=== PATIENT | female | born 1980 | race Caucasian/White ===

== ENCOUNTER 2016-12-30 20:50 | Inpatient (IN) | payer MEDICAID ==
[~2016-12-30] VITALS: Ht 154.9 cm; Wt 73.9 kg
[~2016-12-30 20:50] MED LIST: BENZ2TAB10 PO; DIVA500T52 PO; DOCU250C91 PO; HALO10 PO; LAMO25TA66 PO; LORA10TA7 PO; LORA2TAB2 PO
[2016-12-30 22:53] LABS: BASOPHILS % (AUTO) 0.3 % (0.0-2.0); EOSINOPHILS % (AUTO) 0.1 % (1.0-6.0); HEMATOCRIT 42.5 % (36-46); HEMOGLOBIN 14.5 g/dL (12.0-16.0); LYMPHOCYTES # (AUTO) 1.7 K/uL (1.0-4.8); LYMPHOCYTES % (AUTO) 16.2 % (22.0-44.0); MEAN CORPUSCULAR HEMOGLOBIN 30.5 pg (26.0-34.0); MEAN CORPUSCULAR HGB CONC 34.2 G/dL (31.0-37.0); MEAN CORPUSCULAR VOLUME 89 fL (80-100); MONOCYTES # (AUTO) 0.6 K/uL (0.1-1.0); MONOCYTES % (AUTO) 5.5 % (2.0-9.0); NEUTROPHILS # (AUTO) 8.1 K/uL (1.8-7.7); NEUTROPHILS % (AUTO) 77.9 % (40.0-70.0); PLATELET COUNT (AUTO) 412 K/uL (150-450); RED BLOOD CELL COUNT(AUTO) 4.76 MIL/uL (4.00-5.20); RED CELL DISTRIBUTION WIDTH 15.9 % (11.5-14.5); WHITE BLOOD COUNT (AUTO) 10.5 K/uL (4.5-11.0)
[2016-12-30 23:04] LABS: ANION GAP 13 mmol/L (8-16); CALCIUM, TOTAL 9.3 mg/dL (8.8-10.5); CARBON DIOXIDE 25 mmol/L (22-29); CHLORIDE 101 mmol/L (98-107); CREATININE 0.95 mg/dL (0.60-1.30); GLOMERULAR FILTR. RATE CALC > 60 mL/min (>60); POTASSIUM 3.1 mmol/L (3.5-5.1); SODIUM SERUM 139 mmol/L (136-145); UREA NITROGEN, BLOOD 10 mg/dL (7-18)
[2016-12-30 23:11] LABS: ALANINE AMINOTRANSFERASE 23 U/L (12-78); ALBUMIN 3.7 g/dL (3.4-5.0); ASPARTATE AMINOTRANSFERASE 13 U/L (15-37); BILIRUBIN,TOTAL 0.7 mg/dL (0.1-1.0)
[2016-12-30 23:29] LABS: VALPROIC ACID < 3 mcg/mL (50-100)
[2016-12-31] MEDS ORDERED: POTASSIUM CHLORIDE 10% 40 MEQ/30 ML LIQUID UDCUP PO ONE (04:30)
[2016-12-31 06:57] VITALS: BP 134/89
[2016-12-31] MEDS: LORazepam 2 MG TABLET PO PRN (07:04)
[2016-12-31 08:11] LABS: BASOPHILS % (AUTO) 0.5 % (0.0-2.0); HEMATOCRIT 40.4 % (36-46); LYMPHOCYTES % (AUTO) 31.9 % (22.0-44.0); MEAN CORPUSCULAR HEMOGLOBIN 33.3 pg (26.0-34.0); MEAN CORPUSCULAR HGB CONC 34.6 G/dL (31.0-37.0); MEAN CORPUSCULAR VOLUME 96 fL (80-100); MONOCYTES # (AUTO) 0.6 K/uL (0.1-1.0); MONOCYTES % (AUTO) 8.7 % (2.0-9.0); NEUTROPHILS # (AUTO) 3.6 K/uL (1.8-7.7); NEUTROPHILS % (AUTO) 57.9 % (40.0-70.0); PLATELET COUNT (AUTO) 304 K/uL (150-450); RED CELL DISTRIBUTION WIDTH 13.7 % (11.5-14.5); WHITE BLOOD COUNT (AUTO) 6.3 K/uL (4.5-11.0)
[2016-12-31 08:53] LABS: HEMOGLOBIN A1C 5.3 % (4.5-6.2)
[2016-12-31 09:19] LABS: ALANINE AMINOTRANSFERASE 30 U/L (12-78); ALBUMIN 3.7 g/dL (3.4-5.0); ANION GAP 11 mmol/L (8-16); ASPARTATE AMINOTRANSFERASE 41 U/L (15-37); BILIRUBIN,TOTAL 0.7 mg/dL (0.1-1.0); CALCIUM, TOTAL 9.1 mg/dL (8.8-10.5); CARBON DIOXIDE 25 mmol/L (22-29); CHLORIDE 102 mmol/L (98-107); CHOL/HDL RATIO 2.6 (3.9-5.7); GLOMERULAR FILTR. RATE CALC > 60 mL/min (>60); POTASSIUM 3.5 mmol/L (3.5-5.1); SODIUM SERUM 138 mmol/L (136-145); TOTAL PROTEIN, SERUM 7.4 g/dL (6.4-8.2); UREA NITROGEN, BLOOD 9 mg/dL (7-18)
[2017-01-01 02:58] VITALS: BP 135/68
[2017-01-01] MEDS ORDERED: LORazepam 2 MG/ML VIAL ONE (03:43)
[2017-01-01] MEDS ORDERED: HALOPERIDOL LACTATE 5 MG/ML VIAL ONE (03:44)
[2017-01-01] MEDS ORDERED: DiphenhydrAMINE HCL 50 MG/ML VIAL ONE (03:44)
[2017-01-01] MEDS ORDERED: LORazepam 2 MG/ML VIAL IM ONE (03:45)
[2017-01-01] MEDS ORDERED: DiphenhydrAMINE HCL 50 MG/ML VIAL IM ONE (03:45)
[2017-01-01] MEDS ORDERED: HALOPERIDOL LACTATE 5 MG/ML VIAL IM ONE (03:45)
[2017-01-01] MEDS: NICOTINE 21 MG/24 HOUR PATCH TD SCH (09:50)
[2017-01-01] MEDS ORDERED: LAMO100 PO (12:11)
[2017-01-01] MEDS: ALBUTEROL SULFATE HFA 90 MCG/PUFF 8 GM INHALER IH PRN (14:55)
[2017-01-01 16:23] VITALS: BP 122/74
[2017-01-01] MEDS ORDERED: MAGNESIUM HYDROXIDE SUSPENSION 30 ML UDCUP PO PRN (17:00)
[2017-01-01] MEDS: DOCUSATE SODIUM 100 MG CAPSULE PO SCH (17:22)
[2017-01-01] MEDS: LamoTRIgine 100 MG TABLET PO SCH (20:04)
[2017-01-01] MEDS: HALOPERIDOL 5 MG TABLET PO SCH (20:04)
[2017-01-01] MEDS: ZOLPIDEM TARTRATE 10 MG TABLET PO PRN (21:07)
[2017-01-01] MEDS: LORazepam 2 MG TABLET PO PRN (21:28)
[2017-01-02 02:53] VITALS: BP 122/92
[2017-01-02] MEDS: ALBUTEROL SULFATE HFA 90 MCG/PUFF 8 GM INHALER IH PRN ×4 (02:55→20:04)
[2017-01-02] MEDS: NICOTINE 21 MG/24 HOUR PATCH TD SCH (08:45)
[2017-01-02] MEDS: DIVALPROEX SODIUM 500 MG DR TABLET PO SCH ×2 (08:45→16:40)
[2017-01-02] MEDS: DOCUSATE SODIUM 100 MG CAPSULE PO SCH ×2 (08:45→16:40)
[2017-01-02 10:06] VITALS: BP 107/55
[2017-01-02] MEDS: LORazepam 2 MG TABLET PO PRN (11:55)
[2017-01-02] MEDS: BENZTROPINE MESYLATE 1 MG TABLET PO SCH ×2 (12:22→16:40)
[2017-01-02 16:35] VITALS: BP 119/75
[2017-01-02] MEDS: LamoTRIgine 100 MG TABLET PO SCH (20:04)
[2017-01-02] MEDS: HALOPERIDOL 5 MG TABLET PO SCH (20:04)
[2017-01-02] MEDS: ZOLPIDEM TARTRATE 10 MG TABLET PO PRN (22:06)
[2017-01-03] MEDS: ALBUTEROL SULFATE HFA 90 MCG/PUFF 8 GM INHALER IH PRN ×4 (00:22→23:43)
[2017-01-03] MEDS ORDERED: GuaiFENesin/D-METHORPHAN [SUGAR-FREE] 200-20MG/10 ML SYRUP UDCUP PO PRN (02:45)
[2017-01-03] MEDS ORDERED: GuaiFENesin/D-METHORPHAN [SUGAR-FREE] 200-20MG/10 ML SYRUP UDCUP PO SCH (04:00)
[2017-01-03] MEDS: GuaiFENesin/D-METHORPHAN [SUGAR-FREE] 200-20MG/10 ML SYRUP UDCUP PO PRN ×3 (05:20→20:45)
[2017-01-03 06:35] VITALS: BP 130/77
[2017-01-03 08:28] VITALS: BP 119/68
[2017-01-03] MEDS: DIVALPROEX SODIUM 500 MG DR TABLET PO SCH ×2 (09:18→16:21)
[2017-01-03] MEDS: NICOTINE 21 MG/24 HOUR PATCH TD SCH (09:18)
[2017-01-03] MEDS: DOCUSATE SODIUM 100 MG CAPSULE PO SCH ×2 (09:19→16:21)
[2017-01-03] MEDS: HALOPERIDOL 5 MG TABLET PO PRN (09:20)
[2017-01-03] MEDS: BENZTROPINE MESYLATE 1 MG TABLET PO SCH ×2 (12:19→16:21)
[2017-01-03] MEDS: LORazepam 2 MG TABLET PO PRN (13:37)
[2017-01-03 16:31] VITALS: BP 127/77
[2017-01-03] MEDS: HALOPERIDOL 5 MG TABLET PO SCH (20:19)
[2017-01-03] MEDS: ZOLPIDEM TARTRATE 10 MG TABLET PO PRN (20:19)
[2017-01-03] MEDS: LamoTRIgine 100 MG TABLET PO SCH (20:19)
[2017-01-04 00:20] VITALS: BP 132/78
[2017-01-04] MEDS: GuaiFENesin/D-METHORPHAN [SUGAR-FREE] 200-20MG/10 ML SYRUP UDCUP PO PRN (01:08)
[2017-01-04] MEDS: LORazepam 2 MG TABLET PO PRN ×3 (01:08→20:01)
[2017-01-04 08:13] VITALS: BP 101/68
[2017-01-04] MEDS: DOCUSATE SODIUM 100 MG CAPSULE PO SCH ×2 (09:31→16:24)
[2017-01-04] MEDS: BENZTROPINE MESYLATE 1 MG TABLET PO SCH ×2 (09:31→16:24)
[2017-01-04] MEDS: NICOTINE 21 MG/24 HOUR PATCH TD SCH (09:31)
[2017-01-04] MEDS: DIVALPROEX SODIUM 500 MG DR TABLET PO SCH ×2 (09:32→16:24)
[2017-01-04] MEDS: HALOPERIDOL 5 MG TABLET PO PRN (09:32)
[2017-01-04] MEDS: ALBUTEROL SULFATE HFA 90 MCG/PUFF 8 GM INHALER IH PRN ×3 (10:43→20:51)
[2017-01-04 16:30] VITALS: BP 125/82
[2017-01-04] MEDS: LamoTRIgine 100 MG TABLET PO SCH (20:01)
[2017-01-04] MEDS: HALOPERIDOL 5 MG TABLET PO SCH (20:01)
[2017-01-04] MEDS: ZOLPIDEM TARTRATE 10 MG TABLET PO PRN (20:51)
[2017-01-05 02:18] VITALS: BP 113/73
[2017-01-05] MEDS: ALBUTEROL SULFATE HFA 90 MCG/PUFF 8 GM INHALER IH PRN ×2 (02:20→06:29)
[2017-01-05 08:43] VITALS: BP 109/60
[2017-01-05] MEDS: DIVALPROEX SODIUM 500 MG DR TABLET PO SCH ×2 (09:26→16:04)
[2017-01-05] MEDS: BENZTROPINE MESYLATE 1 MG TABLET PO SCH ×2 (09:26→16:04)
[2017-01-05] MEDS: NICOTINE 21 MG/24 HOUR PATCH TD SCH (09:26)
[2017-01-05] MEDS: DOCUSATE SODIUM 100 MG CAPSULE PO SCH ×2 (09:26→16:04)
[2017-01-05] MEDS: LORazepam 2 MG TABLET PO PRN ×3 (09:27→20:17)
[2017-01-05] MEDS: HALOPERIDOL 5 MG TABLET PO PRN (12:56)
[2017-01-05] MEDS: GuaiFENesin/D-METHORPHAN [SUGAR-FREE] 200-20MG/10 ML SYRUP UDCUP PO PRN (16:27)
[2017-01-05 17:47] VITALS: BP 123/76
[2017-01-05] MEDS: LamoTRIgine 100 MG TABLET PO SCH (20:18)
[2017-01-05] MEDS: HALOPERIDOL 5 MG TABLET PO SCH (20:18)
[2017-01-05] MEDS: ZOLPIDEM TARTRATE 10 MG TABLET PO PRN (20:47)
[2017-01-06] MEDS: ALBUTEROL SULFATE HFA 90 MCG/PUFF 8 GM INHALER IH PRN ×2 (01:33→05:57)
[2017-01-06] MEDS: LORazepam 2 MG TABLET PO PRN ×2 (01:33→16:33)
[2017-01-06] MEDS: HALOPERIDOL 5 MG TABLET PO PRN ×3 (01:33→16:34)
[2017-01-06 01:34] VITALS: BP 112/70
[2017-01-06] MEDS: BENZTROPINE MESYLATE 1 MG TABLET PO SCH ×2 (08:31→16:33)
[2017-01-06] MEDS: DOCUSATE SODIUM 100 MG CAPSULE PO SCH ×2 (08:32→16:33)
[2017-01-06] MEDS: NICOTINE 21 MG/24 HOUR PATCH TD SCH (08:32)
[2017-01-06] MEDS: DIVALPROEX SODIUM 500 MG DR TABLET PO SCH ×2 (08:32→16:34)
[2017-01-06 08:53] VITALS: BP 125/64
[2017-01-06] MEDS ORDERED: BENZOCAINE/MENTHOL LOZENGE PO PRN (10:30)
[2017-01-06] MEDS: GuaiFENesin/D-METHORPHAN [SUGAR-FREE] 200-20MG/10 ML SYRUP UDCUP PO PRN (10:49)
[2017-01-06] MEDS ORDERED: ACETAMINOPHEN 325 MG TABLET PO PRN (11:00)
[2017-01-06] MEDS ORDERED: IBUPROFEN 600 MG TABLET PO PRN (11:00)
[2017-01-06 16:16] VITALS: BP 103/61
[2017-01-06] MEDS: LamoTRIgine 100 MG TABLET PO SCH (21:17)
[2017-01-06] MEDS: HALOPERIDOL 5 MG TABLET PO SCH (21:17)
[2017-01-06] MEDS: ZOLPIDEM TARTRATE 10 MG TABLET PO PRN (21:18)
[2017-01-07 06:29] VITALS: BP 120/60
[2017-01-07 08:00] VITALS: BP 115/72
[2017-01-07] MEDS: BENZTROPINE MESYLATE 1 MG TABLET PO SCH (08:37)
[2017-01-07] MEDS: DOCUSATE SODIUM 100 MG CAPSULE PO SCH (08:37)
[2017-01-07] MEDS: DIVALPROEX SODIUM 500 MG DR TABLET PO SCH (08:38)
[2017-01-07] MEDS: NICOTINE 21 MG/24 HOUR PATCH TD SCH (08:45)
[2017-01-07] MEDS ORDERED: HALO5 PO (09:33)
[2017-01-07] MEDS ORDERED: BENZ1TAB10 PO (09:33)
[2017-01-07] MEDS ORDERED: DSS100 PO (09:33)
== END 2017-01-07 13:15 | disposition home or self-care (01) | DRG 750 ==
LOC: EMS 22:33 → B3A 23:00
PROVIDERS: ADMIT Psychiatry & Neurology Psychiatry; ATTEND Psychiatry & Neurology Psychiatry
DX: F25.9 Schizoaffective disorder, unspecified (principal); Z91.14 Patient's other noncompliance with medication regimen; E87.6 Hypokalemia; F14.90 Cocaine use, unspecified, uncomplicated; F17.200 Nicotine dependence, unspecified, uncomplicated; F19.10 Other psychoactive substance abuse, uncomplicated; F31.9 Bipolar disorder, unspecified; Z02.9 Encounter for administrative examinations, unspecified; Z82.49 Family history of ischemic heart disease and other diseases of the circulatory system; Z83.3 Family history of diabetes mellitus; Z79.899 Other long term (current) drug therapy; Z88.2 Allergy status to sulfonamides
CPT/HCPCS: 83036; 84439; 84443; 87081; 99285; G0480; J1200; J1630; J2060; J3535

== ENCOUNTER 2017-01-27 02:04 | Emergency (ER) | payer MEDICAID, OTHER ==
[~2017-01-27] VITALS: Ht 157.5 cm; Wt 72.5 kg
[~2017-01-27 02:04] MED LIST changes: +BENZ1TAB10 PO; -BENZ2TAB10 PO; -DOCU250C91 PO; +DSS100 PO; -HALO10 PO; +HALO5 PO; +LAMO100 PO; -LAMO25TA66 PO; -LORA10TA7 PO; -LORA2TAB2 PO
[2017-01-27] MEDS ORDERED: OLAN5TAB2 PO (02:22)
[2017-01-27] MEDS ORDERED: HALO50VI4 IM (02:22)
[2017-01-27 02:32] LABS: BASOPHILS % (AUTO) 0.5 % (0.0-2.0); EOSINOPHILS % (AUTO) 0 % (1.0-6.0); HEMATOCRIT 45.5 % (36-46); HEMOGLOBIN 15.4 g/dL (12.0-16.0); LYMPHOCYTES # (AUTO) 2.5 K/uL (1.0-4.8); LYMPHOCYTES % (AUTO) 16.5 % (22.0-44.0); MEAN CORPUSCULAR HEMOGLOBIN 30.7 pg (26.0-34.0); MEAN CORPUSCULAR HGB CONC 33.9 G/dL (31.0-37.0); MEAN CORPUSCULAR VOLUME 91 fL (80-100); MONOCYTES # (AUTO) 1.1 K/uL (0.1-1.0); MONOCYTES % (AUTO) 7.1 % (2.0-9.0); NEUTROPHILS # (AUTO) 11.4 K/uL (1.8-7.7); NEUTROPHILS % (AUTO) 75.9 % (40.0-70.0); PLATELET COUNT (AUTO) 411 K/uL (150-450); RED BLOOD CELL COUNT(AUTO) 5.02 MIL/uL (4.00-5.20); RED CELL DISTRIBUTION WIDTH 15.5 % (11.5-14.5)
[2017-01-27] MEDS ORDERED: OLANZapine 5 MG TABLET PO ONE (03:00)
[2017-01-27] MEDS ORDERED: LORazepam 2 MG TABLET PO ONE (03:00)
[2017-01-27 03:03] LABS: ANION GAP 11 mmol/L (8-16); CALCIUM, TOTAL 9.1 mg/dL (8.8-10.5); CARBON DIOXIDE 25 mmol/L (22-29); CHLORIDE 102 mmol/L (98-107); CREATININE 1.11 mg/dL (0.60-1.30); GLOMERULAR FILTR. RATE CALC 56 mL/min (>60); POTASSIUM 4.1 mmol/L (3.5-5.1); SODIUM SERUM 138 mmol/L (136-145); UREA NITROGEN, BLOOD 12 mg/dL (7-18)
[2017-01-27 03:09] LABS: ALANINE AMINOTRANSFERASE 13 U/L (12-78); ALBUMIN 4.4 g/dL (3.4-5.0); ASPARTATE AMINOTRANSFERASE 16 U/L (15-37); BILIRUBIN,TOTAL 0.4 mg/dL (0.1-1.0); TOTAL PROTEIN, SERUM 8.7 g/dL (6.4-8.2)
[2017-01-27 03:15] LABS: VALPROIC ACID < 3 mcg/mL (50-100)
[2017-01-27 04:04] VITALS: BP 111/66
== END 2017-01-27 04:35 | disposition home or self-care (01) ==
LOC: EMS 02:05
DX: F31.9 Bipolar disorder, unspecified (principal); F91.9 Conduct disorder, unspecified; Z88.2 Allergy status to sulfonamides
CPT/HCPCS: 36415; 80053; 80164; 80307; 84703; 85025; 99284; G0480

== ENCOUNTER 2017-03-14 02:39 | Inpatient (IN) | payer MEDICAID, SELFPAY ==
[~2017-03-14] VITALS: Ht 154.9 cm; Wt 77.7 kg
[~2017-03-14 02:39] MED LIST changes: -DSS100 PO; -HALO5 PO; +HALO50VI4 IM; +OLAN5TAB2 PO
[2017-03-14] MEDS ORDERED: QUET200XR PO (02:50)
[2017-03-14 03:23] LABS: BASOPHILS % (AUTO) 0.9 % (0.0-2.0); EOSINOPHILS % (AUTO) 0.1 % (1.0-6.0); HEMATOCRIT 40.7 % (36-46); HEMOGLOBIN 13.8 g/dL (12.0-16.0); LYMPHOCYTES % (AUTO) 15.4 % (22.0-44.0); MEAN CORPUSCULAR HEMOGLOBIN 30.5 pg (26.0-34.0); MEAN CORPUSCULAR HGB CONC 33.9 G/dL (31.0-37.0); MEAN CORPUSCULAR VOLUME 90 fL (80-100); MONOCYTES # (AUTO) 0.5 K/uL (0.1-1.0); MONOCYTES % (AUTO) 4.3 % (2.0-9.0); NEUTROPHILS # (AUTO) 10.2 K/uL (1.8-7.7); NEUTROPHILS % (AUTO) 79.3 % (40.0-70.0); PLATELET COUNT (AUTO) 362 K/uL (150-450); RED BLOOD CELL COUNT(AUTO) 4.52 MIL/uL (4.00-5.20); RED CELL DISTRIBUTION WIDTH 15.4 % (11.5-14.5); WHITE BLOOD COUNT (AUTO) 12.8 K/uL (4.5-11.0)
[2017-03-14 03:29] LABS: ANION GAP 12 mmol/L (8-16); CALCIUM, TOTAL 8.6 mg/dL (8.8-10.5); CARBON DIOXIDE 23 mmol/L (22-29); CHLORIDE 102 mmol/L (98-107); CREATININE 0.84 mg/dL (0.60-1.30); GLOMERULAR FILTR. RATE CALC > 60 mL/min (>60); POTASSIUM 3.5 mmol/L (3.5-5.1); SODIUM SERUM 137 mmol/L (136-145); UREA NITROGEN, BLOOD 9 mg/dL (7-18)
[2017-03-14] MEDS ORDERED: HALOPERIDOL LACTATE 5 MG/ML VIAL IM ONE (03:30)
[2017-03-14] MEDS ORDERED: DiphenhydrAMINE HCL 50 MG/ML VIAL IM ONE (03:30)
[2017-03-14] MEDS ORDERED: LORazepam 2 MG/ML VIAL IM ONE (03:30)
[2017-03-14 03:34] LABS: ALANINE AMINOTRANSFERASE 17 U/L (12-78); ALBUMIN 3.8 g/dL (3.4-5.0); ASPARTATE AMINOTRANSFERASE 13 U/L (15-37); BILIRUBIN,TOTAL 0.2 mg/dL (0.1-1.0); TOTAL PROTEIN, SERUM 7.7 g/dL (6.4-8.2)
[2017-03-14] MEDS ORDERED: HALOPERIDOL 5 MG TABLET PO PRN (03:45)
[2017-03-14 06:08] VITALS: BP 108/62
[2017-03-14] MEDS ORDERED: INFLUENZA VIRUS VACCINE QVS 2017-18 (3YR+)/PF 60 MCG/0.5 ML SYRINGE IM ONE (06:30)
[2017-03-14] MEDS: QUEtiapine FUMARATE 200 MG ER TABLET PO SCH (09:30)
[2017-03-14] MEDS: OLANZapine 5 MG TABLET PO SCH (09:30)
[2017-03-14 16:30] VITALS: BP 107/64
[2017-03-14] MEDS: LamoTRIgine 100 MG TABLET PO SCH (20:26)
[2017-03-15] MEDS: QUEtiapine FUMARATE 200 MG ER TABLET PO SCH (09:24)
[2017-03-15] MEDS: OLANZapine 5 MG TABLET PO SCH (09:25)
[2017-03-15] MEDS: NICOTINE 21 MG/24 HOUR PATCH TD SCH (11:09)
[2017-03-15] MEDS: LORazepam 2 MG TABLET PO PRN (15:57)
[2017-03-15] MEDS: LamoTRIgine 100 MG TABLET PO SCH (20:30)
[2017-03-15 22:21] VITALS: BP 116/72
[2017-03-16 01:50] VITALS: BP 109/90
[2017-03-16] MEDS: LORazepam 2 MG TABLET PO PRN ×2 (01:52→10:59)
[2017-03-16 08:35] VITALS: BP 106/56
[2017-03-16] MEDS: QUEtiapine FUMARATE 200 MG ER TABLET PO SCH (10:35)
[2017-03-16] MEDS: OLANZapine 5 MG TABLET PO SCH (10:36)
[2017-03-16] MEDS: NICOTINE 21 MG/24 HOUR PATCH TD SCH (10:37)
[2017-03-16] MEDS ORDERED: HEPATITIS A VACCINE, INACTI [ADULT] 1,440 UNITS/ML VIAL IM ONE (11:45)
[2017-03-16 16:30] VITALS: BP 107/67
[2017-03-16] MEDS: LamoTRIgine 100 MG TABLET PO SCH (20:29)
[2017-03-16] MEDS: ZOLPIDEM TARTRATE 10 MG TABLET PO PRN (22:54)
[2017-03-17 08:00] VITALS: BP 114/71
[2017-03-17] MEDS: NICOTINE 21 MG/24 HOUR PATCH TD SCH (10:34)
[2017-03-17] MEDS: QUEtiapine FUMARATE 200 MG ER TABLET PO SCH (10:34)
[2017-03-17] MEDS: OLANZapine 5 MG TABLET PO SCH (10:34)
[2017-03-17] MEDS ORDERED: ACETAMINOPHEN 325 MG TABLET PO PRN (10:45)
[2017-03-17] MEDS ORDERED: IBUPROFEN 600 MG TABLET PO PRN (10:45)
[2017-03-17 16:39] VITALS: BP 125/69
[2017-03-17] MEDS ORDERED: BISACODYL 5 MG EC TABLET PO PRN (16:45)
[2017-03-17] MEDS ORDERED: MAGNESIUM HYDROXIDE SUSPENSION 30 ML UDCUP PO PRN (16:45)
[2017-03-17] MEDS ORDERED: LACTULOSE 20 GM/30 ML SOLUTION UDCUP PO PRN (16:45)
[2017-03-17] MEDS: DOCUSATE SODIUM 250 MG CAPSULE PO SCH (16:52)
[2017-03-17] MEDS: LamoTRIgine 100 MG TABLET PO SCH (21:49)
[2017-03-17] MEDS: LORazepam 2 MG TABLET PO PRN (22:04)
[2017-03-18] MEDS: DOCUSATE SODIUM 250 MG CAPSULE PO SCH ×2 (08:42→16:33)
[2017-03-18] MEDS: QUEtiapine FUMARATE 200 MG ER TABLET PO SCH (08:42)
[2017-03-18] MEDS: OLANZapine 5 MG TABLET PO SCH (08:43)
[2017-03-18] MEDS: NICOTINE 21 MG/24 HOUR PATCH TD SCH (08:47)
[2017-03-18 08:55] VITALS: BP 105/70
[2017-03-18 16:30] VITALS: BP 103/79
[2017-03-18] MEDS: LamoTRIgine 100 MG TABLET PO SCH (21:20)
[2017-03-18] MEDS: LORazepam 2 MG TABLET PO PRN (22:35)
[2017-03-19 01:56] VITALS: BP 98/71
[2017-03-19] MEDS: OLANZapine 5 MG TABLET PO SCH (11:28)
[2017-03-19] MEDS: QUEtiapine FUMARATE 200 MG ER TABLET PO SCH (11:28)
[2017-03-19] MEDS: DOCUSATE SODIUM 250 MG CAPSULE PO SCH ×2 (11:28→17:27)
[2017-03-19] MEDS: NICOTINE 21 MG/24 HOUR PATCH TD SCH (11:30)
[2017-03-19 13:24] VITALS: BP 125/62
[2017-03-19 16:28] VITALS: BP 114/69
[2017-03-19] MEDS: LORazepam 2 MG TABLET PO PRN (17:39)
[2017-03-19] MEDS: ZOLPIDEM TARTRATE 10 MG TABLET PO PRN (21:34)
[2017-03-19] MEDS: LamoTRIgine 100 MG TABLET PO SCH (21:35)
[2017-03-20 01:50] VITALS: BP 119/71
[2017-03-20] MEDS: LORazepam 2 MG TABLET PO PRN ×2 (05:52→21:08)
[2017-03-20 08:15] VITALS: BP 116/67
[2017-03-20] MEDS: OLANZapine 5 MG TABLET PO SCH (09:55)
[2017-03-20] MEDS: DOCUSATE SODIUM 250 MG CAPSULE PO SCH ×2 (09:55→17:12)
[2017-03-20] MEDS: QUEtiapine FUMARATE 200 MG ER TABLET PO SCH (09:55)
[2017-03-20] MEDS: NICOTINE 21 MG/24 HOUR PATCH TD SCH (09:58)
[2017-03-20] MEDS: ARIPiprazole 5 MG TABLET PO SCH (12:35)
[2017-03-20] MEDS: LamoTRIgine 100 MG TABLET PO SCH (21:08)
[2017-03-21 08:15] VITALS: BP 114/62
[2017-03-21] MEDS: QUEtiapine FUMARATE 200 MG ER TABLET PO SCH (09:38)
[2017-03-21] MEDS: DOCUSATE SODIUM 250 MG CAPSULE PO SCH ×2 (09:38→16:41)
[2017-03-21] MEDS: ARIPiprazole 5 MG TABLET PO SCH (09:38)
[2017-03-21] MEDS: OLANZapine 5 MG TABLET PO SCH (09:39)
[2017-03-21] MEDS: NICOTINE 21 MG/24 HOUR PATCH TD SCH (09:40)
[2017-03-21 16:58] VITALS: BP 119/73
[2017-03-21] MEDS: LamoTRIgine 100 MG TABLET PO SCH (20:12)
[2017-03-22] MEDS: LORazepam 2 MG TABLET PO PRN ×2 (04:07→19:07)
[2017-03-22 04:20] VITALS: BP 129/69
[2017-03-22 08:15] VITALS: BP 119/68
[2017-03-22] MEDS: ARIPiprazole 5 MG TABLET PO SCH (10:56)
[2017-03-22] MEDS: DOCUSATE SODIUM 250 MG CAPSULE PO SCH ×2 (10:57→16:41)
[2017-03-22] MEDS: QUEtiapine FUMARATE 200 MG ER TABLET PO SCH (10:57)
[2017-03-22] MEDS: OLANZapine 5 MG TABLET PO SCH (10:58)
[2017-03-22] MEDS: NICOTINE 21 MG/24 HOUR PATCH TD SCH (11:00)
[2017-03-22] MEDS ORDERED: ARIPiprazole ER SUSPENSION 400 MG VIAL IM SCH (14:00)
[2017-03-22] MEDS: LamoTRIgine 100 MG TABLET PO SCH (20:33)
[2017-03-22] MEDS: ZOLPIDEM TARTRATE 10 MG TABLET PO PRN (21:41)
[2017-03-23 08:57] VITALS: BP 109/59
[2017-03-23] MEDS: ARIPiprazole 5 MG TABLET PO SCH (09:57)
[2017-03-23] MEDS: DOCUSATE SODIUM 250 MG CAPSULE PO SCH ×2 (09:57→16:28)
[2017-03-23] MEDS: OLANZapine 5 MG TABLET PO SCH (09:57)
[2017-03-23] MEDS: QUEtiapine FUMARATE 200 MG ER TABLET PO SCH (09:58)
[2017-03-23] MEDS: NICOTINE 21 MG/24 HOUR PATCH TD SCH (09:58)
[2017-03-23 17:55] VITALS: BP 120/73
[2017-03-23] MEDS ORDERED: LAMO100 PO (18:22)
[2017-03-23] MEDS ORDERED: ARIP300S3 IM (18:29)
[2017-03-23] MEDS ORDERED: DOCU250C91 PO (18:36)
== END 2017-03-23 19:00 | disposition home or self-care (01) | DRG 750 ==
LOC: EMS 02:40 → 3EC 05:13 → 3EI 03-18 17:02
PROVIDERS: ADMIT Psychiatry & Neurology Psychiatry; ATTEND Psychiatry & Neurology Psychiatry
PROC: 3E0234Z Introduction of Serum, Toxoid and Vaccine into Muscle, Percutaneous Approach (ICD-10-PCS; principal; 2017-03-16)
DX: F25.9 Schizoaffective disorder, unspecified (principal); D72.829 Elevated white blood cell count, unspecified; J30.9 Allergic rhinitis, unspecified; R35.0 Frequency of micturition; F17.210 Nicotine dependence, cigarettes, uncomplicated; K59.00 Constipation, unspecified; F31.9 Bipolar disorder, unspecified; Z88.2 Allergy status to sulfonamides; Z79.899 Other long term (current) drug therapy; Z87.440 Personal history of urinary (tract) infections; Z86.69 Personal history of other diseases of the nervous system and sense organs; Z83.3 Family history of diabetes mellitus; Z82.49 Family history of ischemic heart disease and other diseases of the circulatory system; Z23 Encounter for immunization
CPT/HCPCS: 90632; 96372; 99285; G0480; J0401; J1200; J1630; J2060

== ENCOUNTER 2020-12-06 10:53 | Inpatient (IN) | payer MEDICAID, OTHER, SELFPAY ==
[~2020-12-06] VITALS: Ht 154.9 cm; Wt 95.7 kg
[~2020-12-06 10:53] MED LIST changes: +ARIP300S3 IM; -BENZ1TAB10 PO; -DIVA500T52 PO; +DOCU-350 PO; -HALO50VI4 IM; -OLAN5TAB2 PO
[2020-12-06 12:52] LABS: BASOPHILS % (AUTO) 0.6 % (0.0-2.0); EOSINOPHILS % (AUTO) 0.2 % (1.0-6.0); HEMATOCRIT 42.9 % (36-46); HEMOGLOBIN 14.2 g/dL (12.0-16.0); LYMPHOCYTES % (AUTO) 17.1 % (22.0-44.0); MEAN CORPUSCULAR HEMOGLOBIN 28.3 pg (26.0-34.0); MEAN CORPUSCULAR HGB CONC 33.2 G/dL (31.0-37.0); MEAN CORPUSCULAR VOLUME 85 fL (80-100); MONOCYTES # (AUTO) 0.9 K/uL (0.1-1.0); MONOCYTES % (AUTO) 7.8 % (2.0-9.0); NEUTROPHILS # (AUTO) 8.7 K/uL (1.8-7.7); NEUTROPHILS % (AUTO) 74.3 % (40.0-70.0); PLATELET COUNT (AUTO) 331 K/uL (150-450); RED BLOOD CELL COUNT(AUTO) 5.04 MIL/uL (4.00-5.20); RED CELL DISTRIBUTION WIDTH 16.7 % (11.5-14.5)
[2020-12-06 13:11] LABS: ANION GAP 16 mmol/L (8-16); CALCIUM, TOTAL 9.2 mg/dL (8.8-10.5); CARBON DIOXIDE 23 mmol/L (22-29); CHLORIDE 101 mmol/L (98-107); CREATININE 0.89 mg/dL (0.60-1.30); GLOMERULAR FILTR. RATE CALC > 60 mL/min (>60); GLUCOSE,RANDOM 99 mg/dL (70-110); POTASSIUM 3.1 mmol/L (3.5-5.1); SODIUM SERUM 140 mmol/L (136-145); UREA NITROGEN, BLOOD 19 mg/dL (7-18)
[2020-12-06 13:22] LABS: ALANINE AMINOTRANSFERASE 42 U/L (12-78); ALBUMIN 3.9 g/dL (3.4-5.0); ALKALINE PHOSPHATASE 102 U/L (46-116); ASPARTATE AMINOTRANSFERASE 27 U/L (15-37); BILIRUBIN,TOTAL 0.8 mg/dL (0.1-1.0); HCG,QUANTITATIVE < 1 mIU/mL (0-6); TOTAL PROTEIN, SERUM 8.3 g/dL (6.4-8.2)
[2020-12-06 13:28] LABS: AMPHET/METH SCREEN,URINE NEGATIVE (NEGATIVE); BARBITURATE SCREEN, URINE NEGATIVE (NEGATIVE); BENZODIAZEPINES SCREEN,URINE NEGATIVE (NEGATIVE); CANNABINOID SCREEN,URINE POSITIVE (NEGATIVE); COCAINE SCREEN,URINE NEGATIVE (NEGATIVE); METHADONE SCREEN, URINE NEGATIVE (NEGATIVE); OPIATE SCREEN,URINE NEGATIVE (NEGATIVE)
[2020-12-06 13:30] LABS: PHENCYCLIDINE SCREEN,URINE NEGATIVE (NEGATIVE)
[2020-12-06 14:02] LABS: COVID AG,FIA SOURCE NASOPHARYNGEAL
[2020-12-06] MEDS ORDERED: POTASSIUM CHLORIDE 10% 40 MEQ/30 ML LIQUID UDCUP PO ONE (14:45)
[2020-12-06 19:44] VITALS: BP 146/97
[2020-12-06] MEDS ORDERED: LamoTRIgine 100 MG TABLET PO SCH (21:00)
[2020-12-06] MEDS: LORazepam 2 MG TABLET PO PRN (21:22)
[2020-12-06] MEDS: NICOTINE 21 MG/24 HOUR PATCH TD SCH (21:28)
[2020-12-07 01:27] VITALS: BP 138/91
[2020-12-07] MEDS ORDERED: ALBUTEROL SULFATE HFA 90 MCG/PUFF 8 GM INHALER IH PRN (07:30)
[2020-12-07] MEDS ORDERED: GuaiFENesin/D-METHORPHAN [SUGAR-FREE] 200-20MG/10 ML SYRUP UDCUP PO PRN (07:30)
[2020-12-07] MEDS ORDERED: MAG HYDROX/AL HYDROX/SIMETH ES 30 ML SUSPENSION UDCUP PO PRN (07:30)
[2020-12-07] MEDS ORDERED: LOPERAMIDE HCL 2 MG CAPSULE PO PRN (07:30)
[2020-12-07] MEDS ORDERED: ACETAMINOPHEN 325 MG TABLET PO PRN (07:30)
[2020-12-07] MEDS ORDERED: IBUPROFEN 400 MG TABLET PO PRN (07:30)
[2020-12-07] MEDS ORDERED: NICOTINE 14 MG/24 HOUR PATCH TD PRN (07:30)
[2020-12-07] MEDS ORDERED: PETROLATUM,WHITE 28 GM JELLY TP PRN (07:30)
[2020-12-07] MEDS ORDERED: DOCUSATE SODIUM 100 MG CAPSULE PO PRN (07:30)
[2020-12-07] MEDS ORDERED: MAGNESIUM HYDROXIDE SUSPENSION 30 ML UDCUP PO PRN (07:30)
[2020-12-07] MEDS ORDERED: CloNIDine HCL 0.1 MG TABLET PO PRN (07:30)
[2020-12-07 07:52] LABS: CHOL/HDL RATIO 2.9 (3.9-5.7); FREE T4 (FREE THYROXINE) 1.66 ng/dL (0.76-1.46); THYROID STIMULATING HORMONE 0.82 uIU/mL (0.36-3.74)
[2020-12-07] MEDS: LORazepam 2 MG TABLET PO PRN ×3 (08:02→22:05)
[2020-12-07] MEDS: HALOPERIDOL 5 MG TABLET PO PRN (08:02)
[2020-12-07 08:29] VITALS: BP 137/76
[2020-12-07] MEDS: NICOTINE 21 MG/24 HOUR PATCH TD SCH (08:34)
[2020-12-07] MEDS ORDERED: ARIPiprazole 10 MG TABLET PO SCH (09:15)
[2020-12-07] MEDS: DIVALPROEX SODIUM 500 MG DR TABLET PO SCH ×2 (09:49→17:26)
[2020-12-07 16:26] VITALS: BP 107/67
[2020-12-07] MEDS: LamoTRIgine 100 MG TABLET PO SCH (20:06)
[2020-12-07] MEDS: QUEtiapine FUMARATE 300 MG TABLET PO SCH (20:06)
[2020-12-07] MEDS: ZOLPIDEM TARTRATE 10 MG TABLET PO PRN (22:05)
[2020-12-08 01:24] VITALS: BP 140/90
[2020-12-08 08:12] VITALS: BP 129/74
[2020-12-08] MEDS: NICOTINE 21 MG/24 HOUR PATCH TD SCH (08:21)
[2020-12-08] MEDS: DIVALPROEX SODIUM 500 MG DR TABLET PO SCH ×2 (08:21→16:19)
[2020-12-08] MEDS: LORazepam 2 MG TABLET PO PRN ×2 (08:21→16:19)
[2020-12-08] MEDS: HALOPERIDOL 5 MG TABLET PO PRN (10:19)
[2020-12-08] MEDS: ONDANSETRON HCL 4 MG TABLET PO PRN (16:04)
[2020-12-08 16:20] VITALS: BP 140/80
[2020-12-08] MEDS: QUEtiapine FUMARATE 300 MG TABLET PO SCH (20:32)
[2020-12-08] MEDS: LamoTRIgine 100 MG TABLET PO SCH (20:32)
[2020-12-08] MEDS: ZOLPIDEM TARTRATE 10 MG TABLET PO PRN (20:51)
[2020-12-09 02:32] VITALS: BP 136/81
[2020-12-09] MEDS: DIVALPROEX SODIUM 500 MG DR TABLET PO SCH ×2 (08:04→16:50)
[2020-12-09] MEDS: LORazepam 2 MG TABLET PO PRN ×2 (08:04→16:50)
[2020-12-09] MEDS: HALOPERIDOL 5 MG TABLET PO PRN ×2 (08:04→16:50)
[2020-12-09] MEDS: NICOTINE 21 MG/24 HOUR PATCH TD SCH (08:04)
[2020-12-09 08:16] VITALS: BP 123/63
[2020-12-09 16:22] VITALS: BP 123/80
[2020-12-09] MEDS: QUEtiapine FUMARATE 300 MG TABLET PO SCH (20:06)
[2020-12-09] MEDS: LamoTRIgine 100 MG TABLET PO SCH (20:06)
[2020-12-09] MEDS: ZOLPIDEM TARTRATE 10 MG TABLET PO PRN (20:43)
[2020-12-10] VITALS (9 sets, daily range): BP systolic 105–137; BP diastolic 66–80
[2020-12-10] MEDS: NICOTINE 21 MG/24 HOUR PATCH TD SCH (08:37)
[2020-12-10] MEDS: LORazepam 2 MG TABLET PO PRN ×2 (08:38→13:57)
[2020-12-10] MEDS: HALOPERIDOL 5 MG TABLET PO PRN ×2 (08:38→14:30)
[2020-12-10] MEDS: DIVALPROEX SODIUM 500 MG DR TABLET PO SCH ×2 (08:50→16:05)
[2020-12-10] MEDS: LamoTRIgine 100 MG TABLET PO SCH (20:18)
[2020-12-10] MEDS: QUEtiapine FUMARATE 300 MG TABLET PO SCH (20:18)
[2020-12-11 06:06] VITALS: BP 138/88
[2020-12-11] MEDS: DIVALPROEX SODIUM 500 MG DR TABLET PO SCH ×2 (07:57→16:41)
[2020-12-11] MEDS: HALOPERIDOL 5 MG TABLET PO PRN ×3 (07:58→16:42)
[2020-12-11] MEDS: LORazepam 2 MG TABLET PO PRN ×3 (07:58→16:42)
[2020-12-11] MEDS: NICOTINE 21 MG/24 HOUR PATCH TD SCH (09:08)
[2020-12-11 16:31] VITALS: BP 111/72
[2020-12-11] MEDS: QUEtiapine FUMARATE 300 MG TABLET PO SCH (20:09)
[2020-12-11] MEDS: LamoTRIgine 100 MG TABLET PO SCH (20:09)
[2020-12-11] MEDS: ZOLPIDEM TARTRATE 10 MG TABLET PO PRN (21:51)
[2020-12-12 05:55] VITALS: BP 121/94
[2020-12-12 08:01] VITALS: BP 117/88
[2020-12-12] MEDS: DIVALPROEX SODIUM 500 MG DR TABLET PO SCH ×2 (08:31→16:17)
[2020-12-12] MEDS: LORazepam 2 MG TABLET PO PRN ×2 (08:31→16:17)
[2020-12-12] MEDS: NICOTINE 21 MG/24 HOUR PATCH TD SCH (08:51)
[2020-12-12] MEDS: HALOPERIDOL 5 MG TABLET PO PRN (16:17)
[2020-12-12 16:23] VITALS: BP 121/65
[2020-12-12] MEDS: LamoTRIgine 100 MG TABLET PO SCH (20:36)
[2020-12-12] MEDS: QUEtiapine FUMARATE 300 MG TABLET PO SCH (20:36)
[2020-12-12] MEDS: ZOLPIDEM TARTRATE 10 MG TABLET PO PRN (20:36)
[2020-12-13 00:47] VITALS: BP 129/79
[2020-12-13] MEDS: LORazepam 2 MG TABLET PO PRN ×3 (04:39→16:14)
[2020-12-13] MEDS: HALOPERIDOL 5 MG TABLET PO PRN ×3 (04:39→16:14)
[2020-12-13] MEDS: DIVALPROEX SODIUM 500 MG DR TABLET PO SCH ×2 (08:00→16:13)
[2020-12-13] MEDS: NICOTINE 21 MG/24 HOUR PATCH TD SCH (08:00)
[2020-12-13] MEDS: MULTIVITAMINS WITH MINERALS, THERAPEUTIC TABLET PO SCH (08:00)
[2020-12-13 08:16] VITALS: BP 135/83
[2020-12-13 16:05] VITALS: BP 113/81
[2020-12-13] MEDS: LamoTRIgine 100 MG TABLET PO SCH (20:44)
[2020-12-13] MEDS: QUEtiapine FUMARATE 300 MG TABLET PO SCH (20:44)
[2020-12-14] MEDS: LORazepam 2 MG TABLET PO PRN ×2 (00:05→08:38)
[2020-12-14] MEDS: HALOPERIDOL 5 MG TABLET PO PRN (00:06)
[2020-12-14 01:40] VITALS: BP 127/74
[2020-12-14] MEDS: DIVALPROEX SODIUM 500 MG DR TABLET PO SCH ×2 (08:07→16:07)
[2020-12-14] MEDS: NICOTINE 21 MG/24 HOUR PATCH TD SCH (08:07)
[2020-12-14] MEDS: MULTIVITAMINS WITH MINERALS, THERAPEUTIC TABLET PO SCH (08:07)
[2020-12-14 08:09] VITALS: BP 141/90
[2020-12-14 09:27] LABS: BASOPHILS % (AUTO) 0.5 % (0.0-2.0); EOSINOPHILS % (AUTO) 1.6 % (1.0-6.0); HEMATOCRIT 38.9 % (36-46); LYMPHOCYTES % (AUTO) 33.8 % (22.0-44.0); MEAN CORPUSCULAR HEMOGLOBIN 28.7 pg (26.0-34.0); MEAN CORPUSCULAR HGB CONC 33.3 G/dL (31.0-37.0); MEAN CORPUSCULAR VOLUME 86 fL (80-100); MONOCYTES # (AUTO) 0.6 K/uL (0.1-1.0); MONOCYTES % (AUTO) 9.3 % (2.0-9.0); NEUTROPHILS # (AUTO) 3.3 K/uL (1.8-7.7); NEUTROPHILS % (AUTO) 54.8 % (40.0-70.0); PLATELET COUNT (AUTO) 303 K/uL (150-450); RED BLOOD CELL COUNT(AUTO) 4.52 MIL/uL (4.00-5.20); RED CELL DISTRIBUTION WIDTH 17.4 % (11.5-14.5)
[2020-12-14 10:39] LABS: ANION GAP 8 mmol/L (8-16); CALCIUM, TOTAL 8.8 mg/dL (8.8-10.5); CARBON DIOXIDE 26 mmol/L (22-29); CHLORIDE 104 mmol/L (98-107); CREATININE 0.87 mg/dL (0.60-1.30); GLOMERULAR FILTR. RATE CALC > 60 mL/min (>60); GLUCOSE,RANDOM 77 mg/dL (70-110); POTASSIUM 4.3 mmol/L (3.5-5.1); SODIUM SERUM 138 mmol/L (136-145); UREA NITROGEN, BLOOD 14 mg/dL (7-18); VALPROIC ACID 64 mcg/mL (50-100)
[2020-12-14 16:24] VITALS: BP 138/84
[2020-12-14] MEDS: ZOLPIDEM TARTRATE 10 MG TABLET PO PRN (21:04)
[2020-12-14] MEDS: LamoTRIgine 100 MG TABLET PO SCH (21:04)
[2020-12-14] MEDS: QUEtiapine FUMARATE 300 MG TABLET PO SCH (21:04)
[2020-12-15 00:59] VITALS: BP 111/87
[2020-12-15 08:05] VITALS: BP 132/92
[2020-12-15] MEDS: DIVALPROEX SODIUM 500 MG DR TABLET PO SCH ×2 (08:09→16:06)
[2020-12-15] MEDS: NICOTINE 21 MG/24 HOUR PATCH TD SCH (08:09)
[2020-12-15] MEDS: HALOPERIDOL 5 MG TABLET PO PRN ×3 (08:09→17:34)
[2020-12-15] MEDS: LORazepam 2 MG TABLET PO PRN ×3 (08:09→16:34)
[2020-12-15] MEDS: MULTIVITAMINS WITH MINERALS, THERAPEUTIC TABLET PO SCH (08:09)
[2020-12-15 16:03] VITALS: BP 137/86
[2020-12-15] MEDS: QUEtiapine FUMARATE 300 MG TABLET PO SCH (20:30)
[2020-12-15] MEDS: LamoTRIgine 100 MG TABLET PO SCH (20:30)
[2020-12-16 01:06] VITALS: BP 123/86
[2020-12-16] MEDS: DIVALPROEX SODIUM 500 MG DR TABLET PO SCH ×2 (08:05→16:07)
[2020-12-16] MEDS: MULTIVITAMINS WITH MINERALS, THERAPEUTIC TABLET PO SCH (08:05)
[2020-12-16] MEDS: NICOTINE 21 MG/24 HOUR PATCH TD SCH (08:05)
[2020-12-16] MEDS: LORazepam 2 MG TABLET PO PRN ×2 (08:05→12:56)
[2020-12-16 08:06] VITALS: BP 122/68
[2020-12-16] MEDS: HALOPERIDOL 5 MG TABLET PO PRN (08:25)
[2020-12-16 16:01] VITALS: BP 135/68
[2020-12-16] MEDS: LamoTRIgine 100 MG TABLET PO SCH (20:18)
[2020-12-16] MEDS: ZOLPIDEM TARTRATE 10 MG TABLET PO PRN (20:19)
[2020-12-16] MEDS: QUEtiapine FUMARATE 300 MG TABLET PO SCH (20:19)
[2020-12-17 00:46] VITALS: BP 145/82
[2020-12-17] MEDS: MULTIVITAMINS WITH MINERALS, THERAPEUTIC TABLET PO SCH (08:04)
[2020-12-17 08:05] VITALS: BP 117/67
[2020-12-17] MEDS: NICOTINE 21 MG/24 HOUR PATCH TD SCH (08:05)
[2020-12-17] MEDS: LORazepam 2 MG TABLET PO PRN ×4 (08:05→21:42)
[2020-12-17] MEDS: HALOPERIDOL 5 MG TABLET PO PRN ×3 (08:05→16:30)
[2020-12-17] MEDS: DIVALPROEX SODIUM 500 MG DR TABLET PO SCH ×2 (08:05→15:57)
[2020-12-17 16:18] VITALS: BP 110/66
[2020-12-17] MEDS: QUEtiapine FUMARATE 300 MG TABLET PO SCH (20:28)
[2020-12-17] MEDS: LamoTRIgine 100 MG TABLET PO SCH (20:28)
[2020-12-18 00:14] VITALS: BP 131/77
[2020-12-18 08:01] VITALS: BP 117/76
[2020-12-18] MEDS: MULTIVITAMINS WITH MINERALS, THERAPEUTIC TABLET PO SCH (08:08)
[2020-12-18] MEDS: HALOPERIDOL 5 MG TABLET PO PRN (08:08)
[2020-12-18] MEDS: NICOTINE 21 MG/24 HOUR PATCH TD SCH (08:09)
[2020-12-18] MEDS: LORazepam 2 MG TABLET PO PRN ×2 (08:09→16:55)
[2020-12-18] MEDS: DIVALPROEX SODIUM 500 MG DR TABLET PO SCH ×2 (08:09→16:55)
[2020-12-18 16:07] VITALS: BP 119/84
[2020-12-18] MEDS: QUEtiapine FUMARATE 300 MG TABLET PO SCH (20:12)
[2020-12-18] MEDS: LamoTRIgine 100 MG TABLET PO SCH (20:13)
[2020-12-18] MEDS: ZOLPIDEM TARTRATE 10 MG TABLET PO PRN (20:13)
[2020-12-19 00:34] VITALS: BP 122/83
[2020-12-19] MEDS: HALOPERIDOL 5 MG TABLET PO PRN (08:00)
[2020-12-19] MEDS: LORazepam 2 MG TABLET PO PRN ×2 (08:00→20:35)
[2020-12-19] MEDS: MULTIVITAMINS WITH MINERALS, THERAPEUTIC TABLET PO SCH (08:00)
[2020-12-19] MEDS: NICOTINE 21 MG/24 HOUR PATCH TD SCH (08:00)
[2020-12-19] MEDS: DIVALPROEX SODIUM 500 MG DR TABLET PO SCH ×2 (08:00→16:08)
[2020-12-19 08:01] VITALS: BP 108/55
[2020-12-19 16:09] VITALS: BP 128/66
[2020-12-19] MEDS: ONDANSETRON HCL 4 MG TABLET PO PRN (17:43)
[2020-12-19] MEDS: LamoTRIgine 100 MG TABLET PO SCH (20:09)
[2020-12-19] MEDS: QUEtiapine FUMARATE 300 MG TABLET PO SCH (20:09)
[2020-12-20 00:50] VITALS: BP 101/66
[2020-12-20 08:17] VITALS: BP 120/66
[2020-12-20] MEDS: DIVALPROEX SODIUM 500 MG DR TABLET PO SCH ×2 (08:24→15:55)
[2020-12-20] MEDS: MULTIVITAMINS WITH MINERALS, THERAPEUTIC TABLET PO SCH (08:24)
[2020-12-20] MEDS: NICOTINE 21 MG/24 HOUR PATCH TD SCH (08:24)
[2020-12-20] MEDS: HALOPERIDOL 5 MG TABLET PO PRN (12:20)
[2020-12-20] MEDS: LORazepam 2 MG TABLET PO PRN ×2 (12:20→21:29)
[2020-12-20 16:25] VITALS: BP 136/74
[2020-12-20] MEDS: LamoTRIgine 100 MG TABLET PO SCH (20:36)
[2020-12-20] MEDS: QUEtiapine FUMARATE 300 MG TABLET PO SCH (20:36)
[2020-12-21 00:54] VITALS: BP 128/66
[2020-12-21] MEDS: LORazepam 2 MG TABLET PO PRN ×2 (07:51→14:45)
[2020-12-21 08:08] VITALS: BP 138/86
[2020-12-21] MEDS: DIVALPROEX SODIUM 500 MG DR TABLET PO SCH ×2 (08:35→16:12)
[2020-12-21] MEDS: NICOTINE 21 MG/24 HOUR PATCH TD SCH (08:35)
[2020-12-21] MEDS: MULTIVITAMINS WITH MINERALS, THERAPEUTIC TABLET PO SCH (08:35)
[2020-12-21] MEDS: HALOPERIDOL 5 MG TABLET PO PRN ×2 (08:57→14:45)
[2020-12-21 16:06] VITALS: BP 132/83
[2020-12-21] MEDS: QUEtiapine FUMARATE 300 MG TABLET PO SCH (20:17)
[2020-12-21] MEDS: LamoTRIgine 100 MG TABLET PO SCH (20:18)
[2020-12-21] MEDS: ZOLPIDEM TARTRATE 10 MG TABLET PO PRN (20:18)
[2020-12-21] MEDS: ONDANSETRON HCL 4 MG TABLET PO PRN (22:13)
[2020-12-22 00:54] VITALS: BP 100/61
[2020-12-22] MEDS: DIVALPROEX SODIUM 500 MG DR TABLET PO SCH ×2 (08:05→16:10)
[2020-12-22 08:06] VITALS: BP 122/79
[2020-12-22] MEDS: HALOPERIDOL 5 MG TABLET PO PRN ×2 (08:06→14:09)
[2020-12-22] MEDS: NICOTINE 21 MG/24 HOUR PATCH TD SCH (08:06)
[2020-12-22] MEDS: MULTIVITAMINS WITH MINERALS, THERAPEUTIC TABLET PO SCH (08:06)
[2020-12-22] MEDS: LORazepam 2 MG TABLET PO PRN ×3 (08:06→18:33)
[2020-12-22 16:01] VITALS: BP 141/83
[2020-12-22] MEDS: LamoTRIgine 100 MG TABLET PO SCH (20:17)
[2020-12-22] MEDS: QUEtiapine FUMARATE 300 MG TABLET PO SCH (20:17)
[2020-12-22] MEDS: ZOLPIDEM TARTRATE 10 MG TABLET PO PRN (20:29)
[2020-12-23 00:01] VITALS: BP 130/83
[2020-12-23] MEDS: MULTIVITAMINS WITH MINERALS, THERAPEUTIC TABLET PO SCH (08:05)
[2020-12-23] MEDS: DIVALPROEX SODIUM 500 MG DR TABLET PO SCH (08:05)
[2020-12-23] MEDS: NICOTINE 21 MG/24 HOUR PATCH TD SCH (08:05)
[2020-12-23 08:14] VITALS: BP 126/71
[2020-12-23] MEDS: HALOPERIDOL 5 MG TABLET PO PRN (08:28)
[2020-12-23] MEDS: LORazepam 2 MG TABLET PO PRN (08:29)
[2020-12-23] MEDS ORDERED: QUET300T2 PO (12:33)
[2020-12-23] MEDS ORDERED: DIVA-112 PO (12:34)
[2020-12-25] MEDS ORDERED: ARIPiprazole ER SUSPENSION 400 MG PRE-FILLED DUAL CHAMBER SYRINGE IM ONE (11:30)
== END 2020-12-23 14:00 | disposition home or self-care (01) | DRG 753 ==
LOC: EMS 10:56 → B2S 15:11 → B3A 15:11 → UNDOADMIN 15:11 → B3A 12-10 19:53
PROVIDERS: ADMIT Psychiatry & Neurology Child & Adolescent Psychiatry; ATTEND Psychiatry & Neurology Child & Adolescent Psychiatry
DX: F31.2 Bipolar disorder, current episode manic severe with psychotic features (principal); G40.909 Epilepsy, unspecified, not intractable, without status epilepticus; D72.829 Elevated white blood cell count, unspecified; Z20.822 Contact with and (suspected) exposure to COVID-19; E87.6 Hypokalemia; F41.9 Anxiety disorder, unspecified; K59.00 Constipation, unspecified; Z59.0 Homelessness
CPT/HCPCS: 80048; 80053; 80061; 80164; 84439; 84443; 84702; 85025; 99285; G0480; Q0162

== ENCOUNTER 2020-12-10 05:58 | Emergency (ER) | payer MEDICAID, OTHER ==
[~2020-12-10] VITALS: Ht 157.5 cm; Wt 109.1 kg
[2020-12-10 07:51] VITALS: BP 150/75
== END 2020-12-10 07:58 | disposition home or self-care (01) ==
LOC: EMS 05:58
DX: F31.9 Bipolar disorder, unspecified (principal); Z88.1 Allergy status to other antibiotic agents; W19.XXXA Unspecified fall, initial encounter; Y93.89 Activity, other specified; Y92.89 Other specified places as the place of occurrence of the external cause; Y99.8 Other external cause status
CPT/HCPCS: 99283; Z7502

== ENCOUNTER 2021-01-02 16:50 | Inpatient (IN) | payer MEDICAID, OTHER ==
[~2021-01-02] VITALS: Ht 154.9 cm; Wt 98.0 kg
[~2021-01-02 16:50] MED LIST changes: -ARIP300S3 IM; +DIVA-112 PO; -DOCU-350 PO; +QUET300T2 PO
[2021-01-02 17:43] LABS: BASOPHILS % (AUTO) 0.5 % (0.0-2.0); EOSINOPHILS % (AUTO) 0.3 % (1.0-6.0); HEMATOCRIT 42.4 % (36-46); HEMOGLOBIN 13.5 g/dL (12.0-16.0); LYMPHOCYTES # (AUTO) 2.1 K/uL (1.0-4.8); LYMPHOCYTES % (AUTO) 18.9 % (22.0-44.0); MEAN CORPUSCULAR HEMOGLOBIN 28.3 pg (26.0-34.0); MEAN CORPUSCULAR HGB CONC 31.7 G/dL (31.0-37.0); MEAN CORPUSCULAR VOLUME 89 fL (80-100); MONOCYTES # (AUTO) 0.7 K/uL (0.1-1.0); MONOCYTES % (AUTO) 6.1 % (2.0-9.0); NEUTROPHILS # (AUTO) 8.3 K/uL (1.8-7.7); NEUTROPHILS % (AUTO) 74.2 % (40.0-70.0); PLATELET COUNT (AUTO) 373 K/uL (150-450); RED BLOOD CELL COUNT(AUTO) 4.75 MIL/uL (4.00-5.20); RED CELL DISTRIBUTION WIDTH 18.1 % (11.5-14.5)
[2021-01-02 18:00] LABS: ANION GAP 13 mmol/L (8-16); CARBON DIOXIDE 26 mmol/L (22-29); CHLORIDE 107 mmol/L (98-107); CREATININE 1.11 mg/dL (0.60-1.30); GLOMERULAR FILTR. RATE CALC 54 mL/min (>60); GLUCOSE,RANDOM 116 mg/dL (70-110); POTASSIUM 3.3 mmol/L (3.5-5.1); SODIUM SERUM 146 mmol/L (136-145); UREA NITROGEN, BLOOD 16 mg/dL (7-18)
[2021-01-02 18:04] LABS: ALANINE AMINOTRANSFERASE 29 U/L (12-78); ALBUMIN 3.4 g/dL (3.4-5.0); ALKALINE PHOSPHATASE 102 U/L (46-116); ASPARTATE AMINOTRANSFERASE 16 U/L (15-37); BILIRUBIN,TOTAL 0.4 mg/dL (0.1-1.0); TOTAL PROTEIN, SERUM 7.6 g/dL (6.4-8.2); VALPROIC ACID 4 mcg/mL (50-100)
[2021-01-02 18:05] LABS: AMPHET/METH SCREEN,URINE NEGATIVE (NEGATIVE); BARBITURATE SCREEN, URINE NEGATIVE (NEGATIVE); BENZODIAZEPINES SCREEN,URINE NEGATIVE (NEGATIVE); CANNABINOID SCREEN,URINE POSITIVE (NEGATIVE); COCAINE SCREEN,URINE NEGATIVE (NEGATIVE); METHADONE SCREEN, URINE NEGATIVE (NEGATIVE); OPIATE SCREEN,URINE NEGATIVE (NEGATIVE)
[2021-01-02 18:13] LABS: PHENCYCLIDINE SCREEN,URINE NEGATIVE (NEGATIVE)
[2021-01-02 21:04] LABS: COVID AG,FIA SOURCE NASOPHARYNGEAL
[2021-01-03 01:49] VITALS: BP 140/91
[2021-01-03] MEDS: ZOLPIDEM TARTRATE 10 MG TABLET PO PRN ×2 (01:52→20:53)
[2021-01-03] MEDS: LORazepam 2 MG TABLET PO PRN ×3 (01:52→16:06)
[2021-01-03 07:10] LABS: CHOL/HDL RATIO 2.7 (3.9-5.7)
[2021-01-03 08:26] VITALS: BP 128/86
[2021-01-03] MEDS ORDERED: LOPERAMIDE HCL 2 MG CAPSULE PO PRN (08:30)
[2021-01-03] MEDS ORDERED: GuaiFENesin/D-METHORPHAN [SUGAR-FREE] 200-20MG/10 ML SYRUP UDCUP PO PRN (08:30)
[2021-01-03] MEDS ORDERED: CloNIDine HCL 0.1 MG TABLET PO PRN (08:30)
[2021-01-03] MEDS ORDERED: MAG HYDROX/AL HYDROX/SIMETH ES 30 ML SUSPENSION UDCUP PO PRN (08:30)
[2021-01-03] MEDS ORDERED: ONDANSETRON HCL 4 MG TABLET PO PRN (08:30)
[2021-01-03] MEDS ORDERED: IBUPROFEN 400 MG TABLET PO PRN (08:30)
[2021-01-03] MEDS ORDERED: MAGNESIUM HYDROXIDE SUSPENSION 30 ML UDCUP PO PRN (08:30)
[2021-01-03] MEDS ORDERED: ALBUTEROL SULFATE HFA 90 MCG/PUFF 8 GM INHALER IH PRN (08:30)
[2021-01-03] MEDS ORDERED: DOCUSATE SODIUM 100 MG CAPSULE PO PRN (08:30)
[2021-01-03] MEDS ORDERED: PETROLATUM,WHITE 28 GM JELLY TP PRN (08:30)
[2021-01-03] MEDS: HALOPERIDOL 5 MG TABLET PO PRN ×2 (08:40→16:06)
[2021-01-03] MEDS ORDERED: POTASSIUM CHLORIDE 20 MEQ ER TABLET PO ONE ×2 (08:45→09:15)
[2021-01-03] MEDS: DIVALPROEX SODIUM 500 MG DR TABLET PO SCH (16:06)
[2021-01-03 16:20] VITALS: BP 104/65
[2021-01-03] MEDS: LamoTRIgine 100 MG TABLET PO SCH (20:25)
[2021-01-03] MEDS: QUEtiapine FUMARATE 300 MG TABLET PO SCH (20:25)
[2021-01-04 03:05] VITALS: BP 101/67
[2021-01-04 08:17] VITALS: BP 131/74
[2021-01-04] MEDS: NICOTINE 14 MG/24 HOUR PATCH TD PRN (08:25)
[2021-01-04] MEDS: LORazepam 2 MG TABLET PO PRN ×2 (08:25→12:59)
[2021-01-04] MEDS: DIVALPROEX SODIUM 500 MG DR TABLET PO SCH ×2 (08:25→16:17)
[2021-01-04] MEDS: HALOPERIDOL 5 MG TABLET PO PRN ×2 (08:25→12:59)
[2021-01-04 16:02] VITALS: BP 121/64
[2021-01-04] MEDS: LamoTRIgine 100 MG TABLET PO SCH (20:06)
[2021-01-04] MEDS: QUEtiapine FUMARATE 300 MG TABLET PO SCH (20:06)
[2021-01-05 00:53] VITALS: BP 118/62
[2021-01-05] MEDS: LORazepam 2 MG TABLET PO PRN ×3 (01:23→20:21)
[2021-01-05] MEDS: ZOLPIDEM TARTRATE 10 MG TABLET PO PRN ×2 (01:23→20:51)
[2021-01-05 07:52] VITALS: BP 97/51
[2021-01-05 08:01] VITALS: BP 97/51
[2021-01-05] MEDS: DIVALPROEX SODIUM 500 MG DR TABLET PO SCH ×2 (08:49→16:05)
[2021-01-05] MEDS: HALOPERIDOL 5 MG TABLET PO PRN (10:08)
[2021-01-05] MEDS: NICOTINE 14 MG/24 HOUR PATCH TD PRN (13:17)
[2021-01-05 16:07] VITALS: BP 113/66
[2021-01-05] MEDS: QUEtiapine FUMARATE 300 MG TABLET PO SCH (20:21)
[2021-01-05] MEDS: LamoTRIgine 100 MG TABLET PO SCH (20:21)
[2021-01-06 00:09] VITALS: BP 121/77
[2021-01-06] MEDS: LORazepam 2 MG TABLET PO PRN ×4 (02:03→17:48)
[2021-01-06] MEDS: HALOPERIDOL 5 MG TABLET PO PRN ×4 (02:03→20:05)
[2021-01-06 08:03] LABS: BASOPHILS % (AUTO) 0.8 % (0.0-2.0); EOSINOPHILS % (AUTO) 2.4 % (1.0-6.0); HEMATOCRIT 38.5 % (36-46); HEMOGLOBIN 12.6 g/dL (12.0-16.0); LYMPHOCYTES # (AUTO) 2.9 K/uL (1.0-4.8); LYMPHOCYTES % (AUTO) 38.3 % (22.0-44.0); MEAN CORPUSCULAR HEMOGLOBIN 28.6 pg (26.0-34.0); MEAN CORPUSCULAR HGB CONC 32.7 G/dL (31.0-37.0); MEAN CORPUSCULAR VOLUME 88 fL (80-100); MONOCYTES # (AUTO) 0.6 K/uL (0.1-1.0); MONOCYTES % (AUTO) 7.7 % (2.0-9.0); NEUTROPHILS # (AUTO) 3.8 K/uL (1.8-7.7); NEUTROPHILS % (AUTO) 50.8 % (40.0-70.0); PLATELET COUNT (AUTO) 319 K/uL (150-450); RED CELL DISTRIBUTION WIDTH 17.4 % (11.5-14.5)
[2021-01-06 08:17] VITALS: BP 109/64
[2021-01-06] MEDS: DIVALPROEX SODIUM 500 MG DR TABLET PO SCH ×2 (08:24→16:01)
[2021-01-06 08:29] LABS: CALCIUM, TOTAL 8.5 mg/dL (8.8-10.5); CARBON DIOXIDE 28 mmol/L (22-29); CHLORIDE 105 mmol/L (98-107); GLOMERULAR FILTR. RATE CALC > 60 mL/min (>60); GLUCOSE,RANDOM 86 mg/dL (70-110); UREA NITROGEN, BLOOD 17 mg/dL (7-18)
[2021-01-06 08:37] LABS: POTASSIUM 4.3 mmol/L (3.5-5.1)
[2021-01-06 08:41] LABS: ANION GAP 7 mmol/L (8-16); SODIUM SERUM 140 mmol/L (136-145)
[2021-01-06] MEDS: NICOTINE 14 MG/24 HOUR PATCH TD PRN (08:42)
[2021-01-06 16:27] VITALS: BP 132/68
[2021-01-06] MEDS: QUEtiapine FUMARATE 300 MG TABLET PO SCH (20:05)
[2021-01-06] MEDS: LamoTRIgine 100 MG TABLET PO SCH (20:05)
[2021-01-07 01:32] VITALS: BP 128/63
[2021-01-07] MEDS: LORazepam 2 MG TABLET PO PRN ×3 (08:13→17:28)
[2021-01-07] MEDS: DIVALPROEX SODIUM 500 MG DR TABLET PO SCH ×2 (08:13→17:19)
[2021-01-07] MEDS: HALOPERIDOL 5 MG TABLET PO PRN ×2 (08:13→12:13)
[2021-01-07 08:32] VITALS: BP 119/78
[2021-01-07 16:08] VITALS: BP 107/62
[2021-01-07] MEDS: QUEtiapine FUMARATE 300 MG TABLET PO SCH (20:16)
[2021-01-07] MEDS: LamoTRIgine 100 MG TABLET PO SCH (20:16)
[2021-01-08] MEDS: LORazepam 2 MG TABLET PO PRN ×4 (00:03→22:31)
[2021-01-08 00:32] VITALS: BP 122/95
[2021-01-08 08:15] VITALS: BP 110/70
[2021-01-08] MEDS: DIVALPROEX SODIUM 500 MG DR TABLET PO SCH ×2 (09:03→16:30)
[2021-01-08] MEDS: NICOTINE 14 MG/24 HOUR PATCH TD PRN (09:04)
[2021-01-08] MEDS: HALOPERIDOL 5 MG TABLET PO PRN ×3 (11:44→22:31)
[2021-01-08 16:02] VITALS: BP 133/85
[2021-01-08] MEDS: LamoTRIgine 100 MG TABLET PO SCH (20:09)
[2021-01-08] MEDS: QUEtiapine FUMARATE 300 MG TABLET PO SCH (20:09)
[2021-01-08] MEDS: ZOLPIDEM TARTRATE 10 MG TABLET PO PRN (20:10)
[2021-01-09 00:10] VITALS: BP 104/60
[2021-01-09] MEDS: NICOTINE 14 MG/24 HOUR PATCH TD PRN (07:51)
[2021-01-09] MEDS: HALOPERIDOL 5 MG TABLET PO PRN ×2 (07:52→21:53)
[2021-01-09] MEDS: LORazepam 2 MG TABLET PO PRN ×3 (07:52→21:53)
[2021-01-09] MEDS: DIVALPROEX SODIUM 500 MG DR TABLET PO SCH ×2 (07:55→16:21)
[2021-01-09 08:30] VITALS: BP 100/67
[2021-01-09 16:02] VITALS: BP 106/64
[2021-01-09] MEDS: LamoTRIgine 100 MG TABLET PO SCH (20:01)
[2021-01-09] MEDS: QUEtiapine FUMARATE 300 MG TABLET PO SCH (20:01)
[2021-01-10 00:33] VITALS: BP 100/60
[2021-01-10] MEDS: ZOLPIDEM TARTRATE 10 MG TABLET PO PRN (00:36)
[2021-01-10 08:20] VITALS: BP 114/74
[2021-01-10] MEDS: HALOPERIDOL 5 MG TABLET PO PRN ×2 (09:17→16:12)
[2021-01-10] MEDS: LORazepam 2 MG TABLET PO PRN ×2 (09:17→13:56)
[2021-01-10] MEDS: DIVALPROEX SODIUM 500 MG DR TABLET PO SCH ×2 (09:17→16:12)
[2021-01-10] MEDS: NICOTINE 14 MG/24 HOUR PATCH TD PRN (13:57)
[2021-01-10 16:27] VITALS: BP 104/65
[2021-01-10] MEDS: QUEtiapine FUMARATE 300 MG TABLET PO SCH (20:18)
[2021-01-10] MEDS: LamoTRIgine 100 MG TABLET PO SCH (20:18)
[2021-01-11 01:27] VITALS: BP 112/63
[2021-01-11 08:07] VITALS: BP 114/64
[2021-01-11] MEDS: LORazepam 2 MG TABLET PO PRN ×2 (08:44→20:32)
[2021-01-11] MEDS: HALOPERIDOL 5 MG TABLET PO PRN (08:44)
[2021-01-11] MEDS ORDERED: DIVALPROEX SODIUM 250 MG DR TABLET PO SCH (09:00)
[2021-01-11 16:01] VITALS: BP 135/75
[2021-01-11] MEDS: DIVALPROEX SODIUM 250 MG DR TABLET PO SCH (16:30)
[2021-01-11] MEDS: NICOTINE 14 MG/24 HOUR PATCH TD PRN (16:54)
[2021-01-11] MEDS: LamoTRIgine 100 MG TABLET PO SCH (20:32)
[2021-01-11] MEDS: QUEtiapine FUMARATE 300 MG TABLET PO SCH (20:32)
[2021-01-12 00:05] VITALS: BP 110/62
[2021-01-12 08:09] VITALS: BP 129/76
[2021-01-12] MEDS: DIVALPROEX SODIUM 250 MG DR TABLET PO SCH ×2 (08:38→16:55)
[2021-01-12] MEDS: LORazepam 2 MG TABLET PO PRN ×2 (13:35→20:42)
[2021-01-12 16:05] VITALS: BP 121/81
[2021-01-12] MEDS: LamoTRIgine 100 MG TABLET PO SCH (20:08)
[2021-01-12] MEDS: QUEtiapine FUMARATE 300 MG TABLET PO SCH (20:08)
[2021-01-13 00:42] VITALS: BP 133/95
[2021-01-13] MEDS: ACETAMINOPHEN 325 MG TABLET PO PRN (00:48)
[2021-01-13 05:13] VITALS: BP 128/88
[2021-01-13] MEDS: DIVALPROEX SODIUM 250 MG DR TABLET PO SCH ×2 (08:01→16:59)
[2021-01-13] MEDS: LORazepam 2 MG TABLET PO PRN (12:35)
[2021-01-13] MEDS: NICOTINE 14 MG/24 HOUR PATCH TD PRN (12:56)
[2021-01-13 16:07] VITALS: BP 113/79
[2021-01-13] MEDS: LamoTRIgine 100 MG TABLET PO SCH (20:41)
[2021-01-13] MEDS: QUEtiapine FUMARATE 300 MG TABLET PO SCH (20:41)
[2021-01-14 00:45] VITALS: BP 108/68
[2021-01-14 03:09] VITALS: BP 102/69
[2021-01-14] MEDS: ACETAMINOPHEN 325 MG TABLET PO PRN (03:09)
[2021-01-14 08:11] VITALS: BP 131/84
[2021-01-14] MEDS: DIVALPROEX SODIUM 250 MG DR TABLET PO SCH ×2 (09:24→16:24)
[2021-01-14] MEDS: LORazepam 2 MG TABLET PO PRN (12:24)
[2021-01-14 16:23] VITALS: BP 117/69
[2021-01-14] MEDS: QUEtiapine FUMARATE 300 MG TABLET PO SCH (21:13)
[2021-01-14] MEDS: LamoTRIgine 100 MG TABLET PO SCH (21:13)
[2021-01-14] MEDS: NICOTINE 14 MG/24 HOUR PATCH TD PRN (21:38)
[2021-01-15 00:07] VITALS: BP 114/62
[2021-01-15 08:06] VITALS: BP 118/68
[2021-01-15] MEDS: DIVALPROEX SODIUM 250 MG DR TABLET PO SCH ×2 (08:20→16:19)
[2021-01-15] MEDS: ACETAMINOPHEN 325 MG TABLET PO PRN (09:46)
[2021-01-15 16:24] VITALS: BP 113/71
[2021-01-15] MEDS: NICOTINE 14 MG/24 HOUR PATCH TD PRN (16:53)
[2021-01-15] MEDS ORDERED: HydrOXYzine PAMOATE 50 MG CAPSULE PO PRN (17:15)
[2021-01-15 17:57] LABS: GLUCOMETER DEV NAME(LOC) POC.BV
[2021-01-15] MEDS: LamoTRIgine 100 MG TABLET PO SCH (21:13)
[2021-01-15] MEDS: QUEtiapine FUMARATE 300 MG TABLET PO SCH (21:13)
[2021-01-16 00:16] VITALS: BP 109/68
[2021-01-16] MEDS: ACETAMINOPHEN 325 MG TABLET PO PRN (05:05)
[2021-01-16 08:13] VITALS: BP 133/78
[2021-01-16] MEDS: HALOPERIDOL 5 MG TABLET PO PRN (08:25)
[2021-01-16] MEDS: DIVALPROEX SODIUM 250 MG DR TABLET PO SCH (08:25)
== END 2021-01-16 14:50 | disposition home or self-care (01) | DRG 750 ==
LOC: EMS 16:54 → B3A 21:00
PROVIDERS: ADMIT Psychiatry & Neurology Child & Adolescent Psychiatry; ATTEND Psychiatry & Neurology Child & Adolescent Psychiatry
DX: F25.9 Schizoaffective disorder, unspecified (principal); E87.0 Hyperosmolality and hypernatremia; G40.909 Epilepsy, unspecified, not intractable, without status epilepticus; Z20.822 Contact with and (suspected) exposure to COVID-19; E66.9 Obesity, unspecified; Z88.2 Allergy status to sulfonamides; E87.6 Hypokalemia; D72.829 Elevated white blood cell count, unspecified; F12.10 Cannabis abuse, uncomplicated; Z59.0 Homelessness; Z68.41 Body mass index [BMI] 40.0-44.9, adult
CPT/HCPCS: 80048; 80053; 80061; 80164; 85025; 87081; 99285; G0480